=== PATIENT | male | born 1955 | race Caucasian/White ===

== ENCOUNTER 2017-06-21 07:15 | Day surgery (SDC) | payer MEDICARE, MEDICAID ==
[~2017-06-21] VITALS: Ht 175.3 cm; Wt 99.6 kg
[~2017-06-21 07:15] MED LIST: DIPH25CA83 PO; FURO-150 PO; LEVOXY PO; LISI40TA4 PO; MELA3TAB PO; METO-539 PO; OMEP40CA37 PO; PRAZ1CAP5 PO; PRAZ2CAP2 PO; TRAZ150T78 PO; WARFARIN PO
[2017-06-21] MEDS ORDERED: SYN0.088T PO (07:34)
[2017-06-21] MEDS ORDERED: COU5T PO (07:34)
[2017-06-21 07:35] VITALS: BP 136/64
[2017-06-21] MEDS ORDERED: normal saline 1000ml 1,000 ML IV PRN (07:35)
[2017-06-21] MEDS ORDERED: ESZO3TAB38 PO (07:35)
[2017-06-21 08:09] LABS: EOSINOPHILS # (AUTO) 0.1 X10'3 (0-0.9); LYMPHOCYTES # (AUTO) 0.3 X10'3 (1.1-4.8); MONOCYTES # (AUTO) 0.1 X10'3 (0-0.9); NEUTROPHILS # (AUTO) 1.3 X10'3 (1.8-7.7); RED BLOOD COUNT 3.55 X10'6 (4.70-6.10); WHITE BLOOD COUNT 1.8 X10'3 (4.5-11.0)
[2017-06-21 08:17] LABS: INR 1.2 INR; PROTHROMBIN TIME 12.1 SECONDS (9.0-12.0)
[2017-06-21 08:25] LABS: BASOPHILS % (AUTO) 0.5 % (0-1); EOSINOPHILS % (AUTO) 3.4 % (0-6); HEMATOCRIT 30.4 % (42.0-52.0); LYMPHOCYTES % (AUTO) 18.7 % (21-51); MEAN CORPUSCULAR HEMOGLOBIN 28.2 PG (27.0-31.0); MEAN CORPUSCULAR VOLUME 85.7 FL (78-98); MEAN PLATELET VOLUME 7.8 FL (7.4-10.4); MONOCYTES % (AUTO) 6.1 % (2-12); NEUTROPHILS % (AUTO) 71.3 % (42-75); PLATELET COUNT 76 X10'3 (140-440); RED CELL DISTRIBUTION WIDTH 17.7 % (11.5-14.5)
[2017-06-21] MEDS ORDERED: LIDOcaine 1% 30ml preserv. free vial SQ ONE (08:30)
[2017-06-21 08:39] LABS: TOTAL CELLS COUNTED 100
[2017-06-21 08:40] LABS: ANISOCYTOSIS 2+; PLATELET ESTIMATE DECREASED
[2017-06-21 08:41] LABS: POIKILOCYTOSIS 1+; SCHISTOCYTES 1+
[2017-06-21 08:43] LABS: MICROCYTOSIS 2+
[2017-06-21 08:44] LABS: TEAR DROP CELLS FEW
== END 2017-06-21 08:55 | disposition home or self-care (01) ==
LOC: SSTAY O 07:15
PROVIDERS: ATTEND Radiology Vascular & Interventional Radiology
DX: J90 Pleural effusion, not elsewhere classified (principal); E03.9 Hypothyroidism, unspecified; Z79.01 Long term (current) use of anticoagulants; Z95.1 Presence of aortocoronary bypass graft; Z86.19 Personal history of other infectious and parasitic diseases; Z85.01 Personal history of malignant neoplasm of esophagus; Z92.21 Personal history of antineoplastic chemotherapy; Z79.899 Other long term (current) drug therapy
CPT/HCPCS: 36415; 76604; 76705; 85025; 85610; J7030; A6257; J3490

== ENCOUNTER 2017-09-22 08:19 | Day surgery (SDC) | payer MEDICAID, MEDICARE ==
[~2017-09-22] VITALS: Ht 175.3 cm; Wt 87.7 kg
[~2017-09-22 08:19] MED LIST changes: +COU5T PO; +ESZO3TAB38 PO; -LEVOXY PO; +LIDOcaine 1%/PF 5ML 10 MG/ML VIAL SQ ONE; -MELA3TAB PO; +SYN0.088T PO; -WARFARIN PO
[2017-09-22 08:49] VITALS: BP 104/50
[2017-09-22 08:52] LABS: INR 1.2 INR
[2017-09-22 09:20] VITALS: BP 104/50
[2017-09-22 09:30] VITALS: BP 136/44
[2017-09-22] MEDS ORDERED: RIFA550T PO (09:42)
[2017-09-22] MEDS ORDERED: SPIR25TA5 PO (09:42)
[2017-09-22] MEDS ORDERED: LACT10SO PO (09:42)
[2017-09-22 09:46] VITALS: BP 119/61
[2017-09-22 11:09] LABS: GLUCOSE,BODY FLUID 102 MG/DL; LDH,BODY FLUID 224 U/L; TOTAL PROTEIN,BODY FLUID 3.2 G/DL
[2017-09-22 11:36] LABS: BFAPPEAR CLOUDY; BFCOLOR RED; BFVOLUME 47 ML
[2017-09-22 11:41] LABS: BF RBC COUNT 21125 /CU MM; EOSINOPHILS,BODY FLUID 1 %; LYMPHOCYTES,BODY FLUID 96 %; MONOCYTES,BODY FLUID 0 %; NEUTROPHILS,BODY FLUID 3 %
[2017-09-22 15:25] LABS: BF WBC COUNT 744 /CU MM (0-1000)
== END 2017-09-22 09:55 | disposition home or self-care (01) ==
LOC: SSTAY O 08:19
PROVIDERS: ATTEND Radiology Vascular & Interventional Radiology
DX: J90 Pleural effusion, not elsewhere classified (principal); B19.20 Unspecified viral hepatitis C without hepatic coma; K76.6 Portal hypertension; E03.9 Hypothyroidism, unspecified; I10 Essential (primary) hypertension; I27.20 Pulmonary hypertension, unspecified; N40.0 Benign prostatic hyperplasia without lower urinary tract symptoms; F10.21 Alcohol dependence, in remission; Z98.52 Vasectomy status; Z92.21 Personal history of antineoplastic chemotherapy; Z95.1 Presence of aortocoronary bypass graft; Z85.828 Personal history of other malignant neoplasm of skin; Z79.891 Long term (current) use of opiate analgesic; Z79.01 Long term (current) use of anticoagulants; Z85.01 Personal history of malignant neoplasm of esophagus; Z92.3 Personal history of irradiation; Z95.2 Presence of prosthetic heart valve; Z87.891 Personal history of nicotine dependence; Z86.19 Personal history of other infectious and parasitic diseases; Z98.890 Other specified postprocedural states; Z79.899 Other long term (current) drug therapy
CPT/HCPCS: 32555; 36415; 71045; 82945; 83615; 84157; 85610; 87070; 89051; J2001

== ENCOUNTER 2018-08-17 15:38 | Outpatient (CLI) | payer MEDICARE, MEDICAID ==
[~2018-08-17] VITALS: Ht 175.3 cm; Wt 85.3 kg
[~2018-08-17 15:38] MED LIST changes: -ESZO3TAB38 PO; +LACT10SO PO; -LIDOcaine 1%/PF 5ML 10 MG/ML VIAL SQ ONE; -PRAZ1CAP5 PO; -PRAZ2CAP2 PO; +RIFA550T PO; +SPIR25TA5 PO
[2018-08-17 16:26] LABS: TOTAL HEMOGLOBIN 10.5 G/dl (14.0-18.0)
[2018-08-17] MEDS ORDERED: albuterol 2.5 MG/3 ML nebule NEB ONE (16:36)
== END 2018-08-17 23:59 | disposition home or self-care (01) ==
LOC: RT 15:38
PROVIDERS: ATTEND Internal Medicine Cardiovascular Disease
DX: J98.4 Other disorders of lung (principal); J44.9 Chronic obstructive pulmonary disease, unspecified; Z79.01 Long term (current) use of anticoagulants; Z79.899 Other long term (current) drug therapy; Z87.891 Personal history of nicotine dependence
CPT/HCPCS: 85018; 94060; 94727; 94729; 94760

== ENCOUNTER 2018-10-31 08:04 | Day surgery (SDC) | payer MEDICARE, MEDICAID ==
[2018-10-31] VITALS (16 sets, daily range): BP systolic 111–170; BP diastolic 55–72
[~2018-10-31] VITALS: Ht 175.3 cm; Wt 90.9 kg
[~2018-10-31 08:04] MED LIST changes: +OMEP40CA13 PO; -OMEP40CA37 PO
[2018-10-31] MEDS ORDERED: normal saline 1000ml 1,000 ML IV SCH ×3 (08:35→10:56)
[2018-10-31] MEDS ORDERED: ESZO3TAB66 PO (09:01)
[2018-10-31] MEDS ORDERED: LEVO112T5 PO (09:03)
[2018-10-31 09:11] LABS: ALBUMIN 3.1 G/DL (3.4-5.0); ANION GAP 8 (8-16); BLOOD UREA NITROGEN 12 MG/DL (7-18); BUN/CREATININE RATIO 12.5 (5.4-32.0); CALCIUM 9.2 MG/DL (8.5-10.1); CHLORIDE 104 MMOL/L (99-107); CREATININE 0.96 MG/DL (0.60-1.10); GLUCOSE 131 MG/DL (70-104); POTASSIUM 4.1 MMOL/L (3.5-5.1); SODIUM 137 MMOL/L (135-145); eGFR 79 ML/MIN
[2018-10-31 09:16] LABS: EOSINOPHILS # (AUTO) 0.2 X10'3 (0-0.9); EOSINOPHILS % (AUTO) 5.4 % (0-6); HEMOGLOBIN 11.8 g/dl (14.0-17.9); LYMPHOCYTES # (AUTO) 0.5 X10'3 (1.1-4.8); LYMPHOCYTES % (AUTO) 16.1 % (21-51); MEAN CORPUSCULAR HEMOGLOBIN 26.9 PG (27.0-31.0); MEAN CORPUSCULAR HGB CONC 33.7 g/dL (33.0-36.5); MEAN CORPUSCULAR VOLUME 79.7 FL (78-98); MEAN PLATELET VOLUME 8.6 FL (7.4-10.4); MONOCYTES # (AUTO) 0.3 X10'3 (0-0.9); MONOCYTES % (AUTO) 8.6 % (2-12); NEUTROPHILS # (AUTO) 2.1 X10'3 (1.8-7.7); NEUTROPHILS % (AUTO) 68.9 % (42-75); PLATELET COUNT 98 X10'3 (140-440); RED BLOOD COUNT 4.39 X10'6 (4.70-6.10); WHITE BLOOD COUNT 3.1 X10'3 (4.5-11.0)
[2018-10-31] MEDS ORDERED: [UNRECOGNIZED DRUG - REMARK] PO (09:19)
[2018-10-31] MEDS ORDERED: fentaNYL/PF 50MCG/1 ML 2ML syringe IV PRN (09:50)
[2018-10-31] MEDS ORDERED: midazolam 2 mg/2 ml injection IV PRN (09:50)
[2018-10-31] MEDS ORDERED: midazolam 2 mg/2 ml injection ONE (10:06)
[2018-10-31] MEDS ORDERED: fentaNYL/PF 50MCG/1 ML 2ML syringe ONE (10:06)
[2018-10-31 10:32] LABS: PLATELET ESTIMATE DECREASED
[2018-10-31 10:33] LABS: ANISOCYTOSIS 3+; ELLIPTOCYTES FEW; MICROCYTOSIS 1+; SCHISTOCYTES FEW
== END 2018-10-31 13:50 | disposition home or self-care (01) ==
LOC: SSTAY O 08:04
PROVIDERS: ATTEND Radiology Diagnostic Radiology
DX: K76.89 Other specified diseases of liver (principal); K74.60 Unspecified cirrhosis of liver; Z88.8 Allergy status to other drugs, medicaments and biological substances; Z91.041 Radiographic dye allergy status; Z79.899 Other long term (current) drug therapy; Z95.2 Presence of prosthetic heart valve; Z79.01 Long term (current) use of anticoagulants
CPT/HCPCS: 36415; 47000; 76942; 80048; 85025; 85610; 99152; 99153; J2250; J3010; J7030; 88305